=== PATIENT | female | born 1960 | race Caucasian/White ===

== ENCOUNTER → 2024-02-23 | Outpatient (CLI) | payer MEDICARE ==
[2024-02-24 02:30] LABS: HCT 43.4 % (37.2-46.3); HGB 14.2 g/dL (12.0-15.0); MCH 33.4 pg (27.0-32.0); MCHC 32.7 g/dL (32.0-37.0); MCV 102.1 FL (80.0-97.0); Mean Platelet Volume 11.4 FL (9.5-12.2); NRBC Per 100 WBC 0 X 10*3/uL (0.00-0.01); Platelet Count 212 X 10*3/uL (140-440); RBC 4.25 X 10*6/uL (4.10-5.20); RDW 12.4 % (11.5-14.5); WBC 4.48 X 10*3/uL (4.50-10.00)
[2024-02-24 02:58] LABS: ALT 21 U/L (8-44); AST 37 U/L (13-35); Albumin 4.4 g/dL (3.8-4.9); Alkaline Phosphatase 40 U/L (41-126); BUN/Creat Ratio 12.56 Ratio (12.00-20.00); Blood Urea Nitrogen 22.6 mg/dL (9.0-27.0); Calcium 9.2 mg/dL (8.7-10.3); Carbon Dioxide 22.8 mmol/L (21.6-31.8); Chloride 106 mmol/L (96-109); Globulin 2.1 g/dL (1.6-3.3); Glucose 73 mg/dL (70-110); Phosphorus 3.9 mg/dL (2.4-5.1); Potassium 4.8 mmol/L (3.5-5.5); Sodium 140 mmol/L (135-145); Total Bilirubin 0.3 mg/dL (0.3-1.2); Total Protein 6.5 g/dL (6.2-8.2)
== END | disposition home or self-care (01) ==
LOC: LABWHC1 15:43
DX: N18.4 Chronic kidney disease, stage 4 (severe) (principal)
CPT/HCPCS: 36415; 80053; 83970; 84100; 85027

== ENCOUNTER → 2024-04-03 | Outpatient (CLI) | payer MEDICARE ==
[2024-04-03 15:59] LABS: Basophils # (A) 0.04 X 10*3/uL (0.00-0.10); Basophils % (A) 0.8 %; Eosinophils # (A) 0.08 X 10*3/uL (0.04-0.35); Eosinophils % (A) 1.7 %; HGB 14.1 g/dL (12.0-15.0); Lymphocytes # (A) 1.31 X 10*3/uL (0.90-5.00); Lymphocytes % (A) 27.2 %; MCH 32.4 pg (27.0-32.0); MCHC 33.6 g/dL (32.0-37.0); MCV 96.6 FL (80.0-97.0); Mean Platelet Volume 10.7 FL (9.5-12.2); Monocytes # (A) 0.32 X 10*3/uL (0.20-1.00); Monocytes % (A) 6.7 %; NRBC Per 100 WBC 0 X 10*3/uL (0.00-0.01); Neutrophils # (A) 3.05 X 10*3/uL (1.80-7.70); Neutrophils % (A) 63.4 %; Platelet Count 216 X 10*3/uL (140-440); RBC 4.35 X 10*6/uL (4.10-5.20); RDW 11.8 % (11.5-14.5); WBC 4.81 X 10*3/uL (4.50-10.00)
[2024-04-03 16:33] LABS: Albumin 4.2 g/dL (3.8-4.9); Amylase 209 U/L (23-121); BUN/Creat Ratio 17.56 Ratio (12.00-20.00); Blood Urea Nitrogen 28.1 mg/dL (9.0-27.0); Calcium 9.5 mg/dL (8.7-10.3); Carbon Dioxide 24.2 mmol/L (21.6-31.8); Chloride 109 mmol/L (96-109); Globulin 2.1 g/dL (1.6-3.3); Glucose 122 mg/dL (70-110); Iron 114 UG/DL (50-170); LDL Cholesterol,Calculated 96.2 mg/dL (0.0-131.0); Lipase 115 U/L (14-63); Magnesium 2.1 mg/dL (1.5-2.4); Phosphorus 3.5 mg/dL (2.4-5.1); Potassium 4.7 mmol/L (3.5-5.5); Sodium 141 mmol/L (135-145); Total Iron Binding Capacity 276 UG/DL (228-460); Total Protein 6.3 g/dL (6.2-8.2); VLDL Calculation 19.06 mg/dL (5.00-40.00)
[2024-04-03 16:34] LABS: ALT 13 U/L (8-44); AST 26 U/L (13-35); Alkaline Phosphatase 46 U/L (41-126); T4, Free (Free Thyroxine) 1.55 ng/dL (0.80-1.80); Total Bilirubin 0.4 mg/dL (0.3-1.2)
== END | disposition home or self-care (01) ==
LOC: LABWHC1 09:46
PROVIDERS: ATTEND Internal Medicine
DX: Z76.89 Persons encountering health services in other specified circumstances (principal); I10 Essential (primary) hypertension; E11.21 Type 2 diabetes mellitus with diabetic nephropathy; E03.9 Hypothyroidism, unspecified; E53.8 Deficiency of other specified B group vitamins; E55.9 Vitamin D deficiency, unspecified; E21.1 Secondary hyperparathyroidism, not elsewhere classified; E11.29 Type 2 diabetes mellitus with other diabetic kidney complication; M81.0 Age-related osteoporosis without current pathological fracture; Z86.19 Personal history of other infectious and parasitic diseases
CPT/HCPCS: 36415; 80053; 80061; 82150; 82306; 82607; 82728; 82746; 83036; 83540; 83550; 83690; 83735; 83970; 84100; 84439; 84443; 85025; 87522

== ENCOUNTER → 2024-04-12 | Outpatient (CLI) | payer MEDICARE ==
--- NOTE | 2024-04-12 10:56 | CT ---
EXAMINATION TYPE: CT abdomen wo con DATE OF EXAM: 04/12/2024 COMPARISON: None CLINICAL INDICATION: Female, 63 years old with history of K86.1 OTHER CHRONIC PANCREATITIS; PHH, PORTABLE SAWYER ENRIKE PANCREATITIS TECHNIQUE: CT of the abdomen performed with with Oral Contrast and , without IV contrast. CT DLP: 257.[address] CTDI: mGy Automated exposure control for dose reduction was used. FINDINGS: There is no airspace consolidation or abnormal interstitial density. There is a 7 mm subpleural paren chymal nodule in the left lung base. There is surgical absence of the gallbladder. There is no biliary ductal dilatation. There is no pancreatic calcification , mass or peripancreatic inflammation. MRI of the pancreas have be useful for further evaluation. There is no organomegaly involving the liver, spleen or adrenal gl ands. There is no renal calcification or hydronephrosis. The kidneys appear mildly atrophic. There are no renal calcifications or hydronephrosis. The caliber of the abdominal aorta is normal and there is no retroperitoneal adenopathy or hemorrhage . The bowel loops are normal in caliber and there is no obstruction or inflammation. There is no free intraperitoneal air or fluid. The osseous structures are intact. The bowel loops are normal in caliber is no evidence of obstruction. No inflammatory changes are iden tified in the mesentery and there is no free intraperitoneal air or fluid. The osseous structures and soft tissues are unremarkable. IMPRESSION: 1. Unremarkable pancreas. For complete evaluation the pancreas, MRI of the pancreas is recommended. 2. 7 mm left lower lobe pulmonary nodule. CT of the thorax is recommended for complete evaluation of the pulmonary parenchyma and to survey for additional nodules. [facility], Workstation: [email or web address] 04/12/2024 10:54 AM
== END | disposition home or self-care (01) ==
LOC: RADCTMAIN 09:36
PROVIDERS: ATTEND Internal Medicine
DX: K86.1 Other chronic pancreatitis (principal); R91.1 Solitary pulmonary nodule
CPT/HCPCS: 74150

== ENCOUNTER → 2024-04-19 | Outpatient (CLI) | payer MEDICARE ==
--- NOTE | 2024-04-19 20:10 | CT ---
EXAMINATION TYPE: CT chest wo con DATE OF EXAM: 04/19/2024 9:13 AM COMPARISON: CT. CLINICAL INDICATION: Female, 63 years old with history of R91.1 lung nodule; PHH, lung nodule TECHNIQUE: Multiple axial images were obtained through the chest. Sagittal and coronal reformats were created for review. MIP was performed on a separate workstation. Contrast used: mL of (None if empty) Oral contrast used: (None if empty) CT DLP: 455 mGycm, Automated exposure control for dose reduction was used. FINDINGS: LUNGS/ PLEURA: No focal consolidation, pneumothorax or pleural effusion. Left lower lobe 6 mm nodule series 3 image 40, right upper lung posterior 5 mm nodule image 12. AIRWAY: Patent and unremarkable. HEART: Size within normal limits. Mitral valve annular calcifications. MEDIASTINUM: No gross evidence of adenopathy. VASCULATURE: No aortic aneurysm. MUSCULOSKELETAL: No acute osseous abnormalities SOFT TISSUES/LYMPH NODES: Unremarkable. LOWER NECK: No significant findings. UPPER ABDOMEN: Postsurgical changes to the gastric lumen. The gallbladder surgically absent. IMPRESSION: 6 cm left lower lobe nodule is stable from 04/12/2024. Consider follow-up lung cancer screening in 6-1 2 months. Follow up recommendations for incidental pulmonary nodules, if there are any, are per [employer] or [employer]. https://radiopaedia.org/articles/zimklqxmsw-[email or web address]-xamghx-[email or web address]-[email or web address]?lang=us [facility], , 04/19/2024 8:08 PM
== END | disposition home or self-care (01) ==
LOC: RADCTMAIN 08:53
PROVIDERS: ATTEND Internal Medicine
DX: R91.1 Solitary pulmonary nodule (principal)
CPT/HCPCS: 71250

== ENCOUNTER → 2024-04-22 | Outpatient (CLI) | payer MEDICARE ==
--- NOTE | 2024-04-22 23:23 | MR ---
EXAMINATION TYPE: MR pancreas wo/w con DATE OF EXAM: 04/22/2024 10:13 PM COMPARISON: CT abdomen 10 days earlier. CLINICAL INDICATION: Female, 63 years old with history of K86.1, abnormal CT, abdominal pain, elevate d pancreatic enzymes, renal failure stage 4 history. IV Contrast: 7 cc Gadavist (None if empty) CONTRAST: Standard multiplanar, multisequence MRI departmental protocol images were obtained without contrast a nd with 7 mL intravenous Gadavist gadolinium contrast. FINDINGS: Pancreas: Similar to recent CT pancreas is grossly normal in size without concerning solid or cystic mass. No abnormal ductal dilatation is seen. Other: Lung bases are clear. Gallbladder is surgically absent. No biliary dilatation is seen. The spl een and both adrenal glands appear unremarkable. No hydronephrosis seen bilaterally. A few tiny subce ntimeter thin-walled cysts scattered throughout both kidneys are present. No abnormal small or large bowel dilatation the abdomen. No free fluid is seen. No AAA is noted. Osseous structures are intact. IMPRESSION: Pancreas appears within normal limits on MRI. No suspicious abnormality is seen. [facility], , 04/22/2024 11:21 PM
== END | disposition home or self-care (01) ==
LOC: RADMRIMAIN 21:30
PROVIDERS: ATTEND Internal Medicine
DX: K86.1 Other chronic pancreatitis (principal)
CPT/HCPCS: 74183; A9585

== ENCOUNTER → 2024-04-24 | Outpatient (CLI) | payer MEDICARE ==
--- NOTE | 2024-04-24 15:22 | US ---
EXAMINATION TYPE: US thyroid st tissue head/neck DATE OF EXAM: 04/24/2024 COMPARISON: NONE CLINICAL INDICATION: Female, 63 years old with history of E039 HYPOTHYROID; Hypothyroidism. TECHNIQUE: Grayscale and color Doppler imaging of the thyroid gland. FINDINGS: GLAND SIZE: Right Lobe: 4.0 x 1.3 x .9 cm Overall Parenchyma: homogeneous Left Lobe: 3.7 x .9 x 1.2 cm Overall Parenchyma: homogeneous Isthmus Thickness: 0.2 cm NODULES RIGHT: # of nodules measured on right: 0 LEFT: # of nodules measured on left: 0 ISTHMUS: # of nodules measured in the isthmus: 0 Bilateral neck scanned, no evidence of lymphadenopathy. IMPRESSION: No discrete thyroid nodules. [facility], , 04/24/2024 3:20 PM
--- NOTE | 2024-05-03 16:11 | MM ---
Reason for Exam: Screening (asymptomatic). Last mammogram was performed 1 year(s) and 1 month(s) ago. Patient History: Menarche at age 11. Patient has no children. Risk Values: Karla 5 year model risk: 1.8%. NCI Lifetime model risk: 7.2%. Prior Study Comparison: 06/25/2002 Bilateral Screening Mammogram, [facility]. 03/08/2022 Bilateral Screening Mammogram, [place]. 03/21/2023 Bilateral Screening Mammogram, [place]. Tissue Density: There are scattered areas of fibroglandular density. Findings: Analyzed By CAD. There is no suspicious group of microcalcifications or new suspicious mass in either breast. Overall Assessment: Negative, BI-RAD 1 Management: Screening Mammogram of both breasts in 1 year. Patient should continue monthly self-breast exams. A clinical breast exam by your physician is recommended on an annual basis. This exam should not preclude additional follow-up of suspicious palpable abnormalities. Note on Karla scores and lifetime risk: 1. A Karla score greater than 3% is considered moderate risk. If this is the case, consider specialist referral to assess eligibility for a risk reducing agent. 2. If overall lifetime risk for the development of breast cancer is 20% or higher, the patient may qualify for future screening with alternating mammogram and breast MRI. [facility], , 05/03/2024 4:08 PM. Electronically signed and approved by: Stas Victor M.D. Radiologist
== END | disposition home or self-care (01) ==
LOC: RADUSWWP 13:41
PROVIDERS: ATTEND Internal Medicine
DX: Z12.31 Encounter for screening mammogram for malignant neoplasm of breast (principal); E03.9 Hypothyroidism, unspecified; R92.323 Mammographic fibroglandular density, bilateral breasts
CPT/HCPCS: 76536; 77063; 77067

== ENCOUNTER → 2024-07-16 | Outpatient (CLI) | payer MEDICARE ==
--- NOTE | 2024-07-16 13:56 | US ---
EXAMINATION TYPE: US kidneys/renal and bladder DATE OF EXAM: 07/16/2024 COMPARISON: CT April 12, 2024 CLINICAL INDICATION: Female, 63 years old with history of K1832 STAGE 3B CKD; CKD TECHNIQUE: Grayscale imaging of the bilateral kidneys and urinary bladder: FINDINGS: EXAM MEASUREMENTS: Right Kidney: 7.5 x 3.7 x 3.5 cm Left Kidney: 8.0 x 4.1 x 3.8 cm Right Kidney: Small in size as visualized on prior CT, No evidence of hydro, lower pole gassed out Left Kidney: Small in size as visualized on prior CT, No evidence of hydro, limited views due to over lying bowel content and pt's thin body habitus Bladder: wnl Bilateral Jets seen: Yes There is no evidence for hydronephrosis at this point in time. No nephrolithiasis is seen. No rosa maria s are identified. The urinary bladder is anechoic. IMPRESSION: Suboptimal study. No hydronephrosis is seen bilaterally. [facility], , 07/16/2024 1:54 PM
== END | disposition home or self-care (01) ==
LOC: RADUSWWP 13:09
PROVIDERS: ATTEND Internal Medicine Nephrology
DX: N18.32 Chronic kidney disease, stage 3b (principal)
CPT/HCPCS: 76770

== ENCOUNTER 2024-07-17 07:04 | Day surgery (SDC) | payer MEDICARE ==
[2024-07-17] MEDS: IV FLUID CONTINUATION 1,000 ML IV ONE (07:30)
[2024-07-17 07:35] VITALS: TEMP 96.8
[2024-07-17] MEDS: LACTATED RINGERS 1,000 ML IV SCH (07:55)
[2024-07-17] MEDS ORDERED: LIDOCAINE 1% INJ 10MG/ML (20 ML MDV) ONE (08:40)
[2024-07-17] MEDS ORDERED: PROPOFOL 10 MG/ML 20 ML VIAL IV ONE (08:40)
--- NOTE | 2024-07-17 08:51 | P.PCN ---
Date of Procedure: 07/17/24 Procedure(s) Performed: BRIEF HISTORY: Patient is a 63-year-old, pleasant, white female scheduled for an upper endoscopy as a part evaluation of chronic epigastric pain of 6 months duration. 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 PREOPERATIVE DIAGNOSIS: Chronic epigastric pain. IV sedation per anesthesia. PROCEDURE: After informed consent was obtained, the patient was brought into the endoscopy unit. IV sedation was administered by Anesthesia under continuous monitoring. Initially the Olympus GIF-140 video endoscope was inserted into the mouth. Esophagus intubated without any difficulty. It was gradually advanced into the stomach. There was evidence of gastric bypass surgery with Burton-en-Y anastomosis identified. The afferent and efferent loops appeared normal. The scope was advanced into the proximal jejunum that appeared normal. At this time the scope was withdrawn to the gastric pouch. At the anastomosis the way scattered erosions and erythema identified which was biopsied. The gastric body appeared normal. The scope was then withdrawn into the esophagus. Small hiatal hernia noted. The GE junction was located at 39 cm from the incisors. The esophagus appeared normal. There were no erosions or ulcerations seen and the patient tolerated the procedure well. IMPRESSION: 1. Mild erythema with erosions at the Burton-en-Y anastomosis status post biopsies 2. Small hiatal hernia. RECOMMENDATIONS: The findings of this examination were discussed with the patient as well as her family. Continue with Pepcid 20 mg twice daily and avoid NSAIDs. Follow-up in the office in 2 to 3 weeks..
[2024-07-17 09:32] LABS: Glucose,Whole Blood 114 mg/dL (70-110)
[2024-07-17 09:42] VITALS: BP 150/83; PULSE 58; RESP 16
== END 2024-07-17 10:13 | disposition home or self-care (01) ==
LOC: ORWHC2ENDO 07:04
PROVIDERS: ATTEND Internal Medicine Gastroenterology
DX: K29.50 Unspecified chronic gastritis without bleeding (principal); K44.9 Diaphragmatic hernia without obstruction or gangrene; K85.90 Acute pancreatitis without necrosis or infection, unspecified; E11.9 Type 2 diabetes mellitus without complications; N28.9 Disorder of kidney and ureter, unspecified; I10 Essential (primary) hypertension; E07.9 Disorder of thyroid, unspecified; F32.A Depression, unspecified; F41.9 Anxiety disorder, unspecified; G43.909 Migraine, unspecified, not intractable, without status migrainosus; Z98.84 Bariatric surgery status; Z88.0 Allergy status to penicillin; Z88.5 Allergy status to narcotic agent; Z88.8 Allergy status to other drugs, medicaments and biological substances; Z79.890 Hormone replacement therapy; Z79.899 Other long term (current) drug therapy
CPT/HCPCS: 88305; 88342; 43239; J2003; J2704

== ENCOUNTER → 2024-07-22 | Outpatient (CLI) | payer MEDICARE | END | disposition home or self-care (01) | LOC: LABWHC1 10:52 | PROVIDERS: ATTEND Internal Medicine Gastroenterology | DX: R74.8 Abnormal levels of other serum enzymes (principal) | CPT/HCPCS: 36415; 83690 ==

== ENCOUNTER 2024-08-02 08:30 | Day surgery (SDC) | payer MEDICARE ==
[~2024-08-02 08:30] MED LIST: LACTATED RINGERS 1,000 ML IV SCH
[2024-08-02] MEDS: IV FLUID CONTINUATION 1,000 ML IV ONE ×3 (08:45→10:02)
[2024-08-02 08:58] VITALS: TEMP 97.6
[2024-08-02 09:05] LABS: Glucose,Whole Blood 116 mg/dL (70-110)
[2024-08-02] MEDS ORDERED: LIDOCAINE 1% INJ 10MG/ML (20 ML MDV) ONE (09:38)
[2024-08-02] MEDS ORDERED: PROPOFOL 10 MG/ML 20 ML VIAL IV ONE (09:38)
--- NOTE | 2024-08-02 09:59 | P.PCN ---
Date of Procedure: 08/02/24 Procedure(s) Performed: BRIEF HISTORY: Patient is a 63-year-old pleasant white female scheduled for an elective colonoscopy as a part of screening for colon cancer. PROCEDURE PERFORMED: Colonoscopy with snare polypectomy. PREOPERATIVE DIAGNOSIS: Screening for colon cancer. IV sedation per Anesthesia. PROCEDURE: After informed consent was obtained, the patient, was brought into the endoscopy unit. IV sedation was administered by Anesthesia under continuous monitoring. Digital rectal examination was normal. Initially the Olympus CF-160 flexible video colonoscope was then inserted in the rectum, gradually advanced into the cecum without any difficulty. Careful examination was performed as the scope was gradually being withdrawn. Ileocecal valve and the appendiceal orifice were visualized and appeared normal. Prep was excellent. Mucosa of the cecum, ascending colon, transverse colon, descending colon, sigmoid colon, and rectum appeared normal. In the sigmoid colon there was a 5 mm polyp that was removed by cold snare polypectomy. Retroflexion was performed in the rectum and no lesions were seen. The patient tolerated the procedure well. IMPRESSION: 5 mm sigmoid colon polyp status post cold snare polypectomy Rest of the colon appeared normal RECOMMENDATIONS: Findings of this examination were discussed with the patient as well as her family.. She was advised to follow-up with the biopsy results. If the biopsy reveals adenoma she can have repeat colonoscopy in 5 years.
[2024-08-02 10:21] VITALS: BP 115/61; PULSE 60; RESP 14
== END 2024-08-02 10:42 | disposition home or self-care (01) ==
LOC: ORWHC2ENDO 08:30
PROVIDERS: ATTEND Internal Medicine Gastroenterology
DX: Z12.11 Encounter for screening for malignant neoplasm of colon (principal); K63.5 Polyp of colon; I20.9 Angina pectoris, unspecified; I10 Essential (primary) hypertension; E07.9 Disorder of thyroid, unspecified; E11.9 Type 2 diabetes mellitus without complications; F41.9 Anxiety disorder, unspecified; F32.A Depression, unspecified; N28.9 Disorder of kidney and ureter, unspecified; Z90.10 Acquired absence of unspecified breast and nipple; Z88.0 Allergy status to penicillin; Z88.5 Allergy status to narcotic agent; Z88.8 Allergy status to other drugs, medicaments and biological substances; Z79.890 Hormone replacement therapy; Z79.02 Long term (current) use of antithrombotics/antiplatelets; Z79.899 Other long term (current) drug therapy
CPT/HCPCS: 45385; J2003; J2704; 88305

== ENCOUNTER → 2024-08-09 | Outpatient (CLI) | payer MEDICARE | END | disposition home or self-care (01) | LOC: LABWHC1 13:15 | PROVIDERS: ATTEND Nurse Practitioner Family | DX: K52.9 Noninfective gastroenteritis and colitis, unspecified (principal) | CPT/HCPCS: 82656 ==

== ENCOUNTER → 2024-10-18 | Outpatient (CLI) | payer MEDICARE ==
--- NOTE | 2024-10-18 10:53 | CT ---
EXAMINATION TYPE: CT chest wo con DATE OF EXAM: 10/18/2024 10:42 AM COMPARISON: 04/19/2024. CLINICAL INDICATION: Female, 63 years old with history of R91.8 ABNORMAL LUNG FIELD; PHH, PULMONARY N ODULES. TECHNIQUE: Multiple axial images were obtained through the chest. Sagittal and coronal reformats were created for review. MIP was performed on a separate workstation. Contrast used: mL of (None if empty) Oral contrast used: (None if empty) CT DLP: 381 mGycm, Automated exposure control for dose reduction was used. FINDINGS: LUNGS/ PLEURA: No focal consolidation, pneumothorax or pleural effusion. 6 mm left lower lobe medial pulmonary nodule series 3 image 36 is stable given differences in technique. Right lower lobe superior segment groundglass nodule measuring 7 mm is stable. Series 3 image 26. AIRWAY: Patent and unremarkable. HEART: Size within normal limits. No significant coronary artery calcifications. MEDIASTINUM: No gross evidence of adenopathy. VASCULATURE: No aortic aneurysm. MUSCULOSKELETAL: No acute osseous abnormalities SOFT TISSUES/LYMPH NODES: Unremarkable. LOWER NECK: No significant findings. UPPER ABDOMEN: The gallbladder is surgically absent. Post surgical changes of the gastric lumen moder ate hiatal hernia.. IMPRESSION: 1. Stable bilateral lower lobe pulmonary nodules. Yearly low-dose lung cancer screening is recommend ed. 2. Moderate hiatal hernia. Follow up recommendations for incidental pulmonary nodules, if there are any, are per [employer] [place] [employer] or [employer]. https://radiopaedia.org/articles/pxbnliwttp-ogerrvz-ecjxzirhz-iyeisz-[email or web address]?lang=us [facility], , 10/18/2024 10:51 AM
== END | disposition home or self-care (01) ==
LOC: RADCTMAIN 09:44
PROVIDERS: ATTEND Internal Medicine
DX: R91.8 Other nonspecific abnormal finding of lung field (principal); K44.9 Diaphragmatic hernia without obstruction or gangrene
CPT/HCPCS: 71250